=== PATIENT | female | born 1985 ===

== ENCOUNTER 2018-09-18 13:25 | Inpatient (IN) | payer OTHER ==
[2017-10-02 10:08] VITALS: BMI 24.3
--- NOTE | 2018-09-18 14:18 | OBHP ---
Datetime: 09/18/2018 14:09 IP Adm Impression: Term, intrauterine IP Admit Plan: Admit to unit; Initiate labor protocol Admit Comment, IP Provider: 33yo at 38+3wks CHAPARRO: 09/30/18 by LMP: 12/24/18 presents with uterine contractions since last night at 9pm q5-6 minutes. Reports good movements, denies leakage of fl uid. (+) vaginal spotting. PNC: Dr. Robertson POb: G1- current , no complications PGYN: LMP: 12/24/18 PMHx: denies PShx: denies ALL: NKDA Meds: PNV SHx: denies alcohol, tobacco, illicit drug use SVE: /-3 TOCO: q2-3 min EFM: 150s, mod variability (+) accels (-) decels A/P: 33yo at 38.3wks Admit to L_D for Labor d/w Dr. Robertson Pelvic Type - PN: Adequate General - PN: Normal FHR - Baseline A Provider: 150 Contraction Comments Provider: q2-3 Comments, ACOG Physical Exam: SVE: /-3 Gestation - Est Wks by US: 38.3 EGA AdmitDate IP: 38.2 IP Indication for Induction: Not Applicable IP Chief Complaint: Uterine contractions NICHD Variability Prov Fetus A: Moderate 6-25bpm NICHD Accel Fetus A IP Provider: 15X15 FHR Category Provider Fetus A: Category I NICHD Decel Fetus A IP Provider: None Dilatation, Provider: 2 Effacement, Provider: 80 Station, Provider: -2
[2018-09-18] MEDS ORDERED: Lactated Ringer's 1,000 ML IV ONE (14:21)
[2018-09-18] MEDS ORDERED: Lactated Ringer's 1,000 ML IV SCH (14:30)
--- NOTE | 2018-09-18 14:37 | OBADHP ---
Datetime: 09/18/2018 14:09 Admit Comment, IP Provider: 33yo at 38.2wks CHAPARRO: 09/30/18 by LMP: 12/24/18 c/w 12.5wk US presents with uterine contractions since last night at 9pm q5-6 minutes. Reports good movements, denies leakage of fluid. (+) vaginal spotting. PNC: Dr. Robertson POb: G1- current , no complications PGYN: LMP: 12/24/18 no h/o abnormal pap smears no STDs PMHx: denies PShx: denies ALL: NKDA Meds: PNV SHx: denies alcohol, tobacco, illicit drug use SVE: /-3 TOCO: q2-3 min EFM: 150s, mod variability (+) accels (-) decels A/P: 33yo at 38.2wks Admit to L_D for Labor continous EFM/TOCO IVF @ 125cc/hr Epidural PRN Dr. Robertson aware and in house Pelvic Type - PN: Adequate General - PN: Normal FHR - Baseline A Provider: 150 Membranes, Provider: Intact Contraction Comments Provider: q2-3 Comments, ACOG Physical Exam: SVE: /-3 Gestation - Est Wks by US: 38.3 Vital Signs Provider: Reviewed IP Chief Complaint: Uterine contractions NICHD Variability Prov Fetus A: Moderate 6-25bpm NICHD Accel Fetus A IP Provider: [id number] FHR Category Provider Fetus A: Category I NICHD Decel Fetus A IP Provider: None Dilatation, Provider: 2 Effacement, Provider: 80 Station, Provider: -2 EGA AdmitDate IP: 38.2 IP Adm Impression: Term, intrauterine IP Admit Plan: Admit to unit; Initiate labor protocol
[2018-09-18 15:04] LABS: BASO # 0.1 K/uL (0.0-0.2); BASO % 0.4 % (0.0-2.0); EOS % 0.3 % (0.0-4.0); HEMOGLOBIN 12.4 g/dL (11.0-16.0); LYMPH # 2.3 K/uL (1.0-4.3); LYMPH % 17.2 % (20.0-40.0); MEAN CELL VOLUME 87.4 fL (81.0-99.0); MEAN CORPUSCULAR HEMOGLOBIN 29.8 pg (27.0-31.0); MEAN CORPUSCULAR HGB CONC 34.1 g/dL (33.0-37.0); MONO % 7.1 % (0.0-10.0); NEUT # 10.2 K/uL (1.8-7.0); RBC 4.15 Mil/uL (3.80-5.20); RED CELL DISTRIBUTION WIDTH 13.5 % (11.5-14.5); WHITE BLOOD COUNT 13.6 K/uL (4.8-10.8)
[2018-09-18 15:10] LABS: SQUAMOUS EPITHIAL 3 /hpf (0-5); URINE BACTERIA OCC (<OCC); URINE BILIRUBIN NEGATIVE (NEGATIVE); URINE CLARITY Clear (Clear); URINE COLOR Straw (YELLOW); URINE GLUCOSE (UA) NORMAL (Normal); URINE PROTEIN NEGATIVE (NEGATIVE); URINE UROBILINOGEN NORMAL mg/dL (0.2-1.0)
[2018-09-18 15:21] LABS: URINE BLOOD 2+ (NEGATIVE); URINE LEUKOCYTE ESTERASE 1+ Leu/uL (Negative)
[2018-09-18 16:26] LABS: RAPID PLASMA REAGIN NONREACTIVE (NONREACTIVE)
--- NOTE | 2018-09-18 16:58 | OBPN ---
Datetime: 09/18/2018 16:53 IP Progress Impression: Normal progression of labor IP Informed Consent Obtain: Vaginal Delivery IP Procedures: Artificial ROM IP Progress Plan: Continue present management Membranes, Provider: Ruptured Amniotic Fluid Color, Provider: Clear Contraction Comments Provider: 4 min FHR - Baseline A Provider: 150 Gestation - Est Wks by US: 38.2 Presentation-Admit: Vertex IP Progress Note Comment: pt was seen and reexamined reprots pain from ctx q 5 min 6/10. denies lof, vb, +Fm VS see aove VE: 5/80/-2 AROM clearn EFM: Cta I MARIZOL: q 4 min A/P @ 38.2 wks GA in active labor s/p arom pitocin augmention as per protocol pain mangmetn cont curretn magnent Vital Signs Provider: Reviewed FHR Category Provider Fetus A: Category I NICHD Variability Prov Fetus A: Moderate 6-25bpm Dilatation, Provider: 5 Effacement, Provider: 80 Station, Provider: -2 NICHD Decel Fetus A IP Provider: None Datetime: 09/18/2018 14:09 NICHD Accel Fetus A IP Provider: [id number]
[2018-09-18] MEDS ORDERED: Oxytocin 30 UNIT 30 UNITS/500 ML BAG IV ONE (16:59)
[2018-09-18] MEDS ORDERED: Oxytocin 30 UNIT 30 UNITS/500 ML BAG IV SCH (17:00)
[2018-09-18] MEDS ORDERED: Fentanyl/Bupivacaine HCl 250 ML EPI ONE (19:36)
--- NOTE | 2018-09-19 02:59 | OBPN ---
Datetime: 09/19/2018 02:31 IP Progress Impression: Normal progression of labor IP Informed Consent Obtain: Vaginal Delivery IP Progress Plan: Continue present management; Anticipate Vaginal Delivery Membranes, Provider: Ruptured FHR - Baseline A Provider: 160 Gestation - Est Wks by US: 38.3 Presentation-Admit: Vertex IP Progress Note Comment: pt seen and examined for progression of labor s/p epidural VS see above VE: 10/100/0, VTX EFM: Cat I TOCO; q 2-3min A/P @38.3 wks GA fully dilated will start pushing anticipe cont current managment Vital Signs Provider: Reviewed NICHD Variability Prov Fetus A: Moderate 6-25bpm Dilatation, Provider: 10 Effacement, Provider: 100 Station, Provider: 0
[2018-09-19] MEDS ORDERED: Lidocaine 2% MPF (5 ml) Inj ONE (03:43)
[2018-09-19] MEDS ORDERED: Oxycodone/Acetaminophen 5/325 mg Tab PO PRN ×2 (04:34)
[2018-09-19] MEDS ORDERED: OXYTOCIN IV ONE (04:34)
--- NOTE | 2018-09-19 04:40 | OBDS ---
DELIVERY PERSONNEL Delivery Doctor: Giulia Robertson MD Scrub Nurse: Sima Carlos RN MATERNAL INFORMATION Delivery Anesthesia: Epidural Medications in Delivery: methergine 0.2mg IM Estimated Blood Loss (ml): 350 Placenta Cultured: No Maternal Complications: Maternal Fever Other Maternal Complications: fever of 101.0, peds made aware and present for delivery Provider Comments: pt was fully dilated and pushing. Verbcal consent for episitomy given by patient. Right mediolateral epistiomy perfomred, atrumat,c spontaneous delivery of head, tight nuchal cord x 1 looseened with compound presentation right hand. atrumatic, spontnaoud delivery of atnerior followe d by posterior shoulder followed by delivery of the body. both oral and nasal passages of the baby we re bulb suctioned. umbilical cord was clamped and cut. baby handed to mother on abodmen with rn margaret guallpa. Cord blood adn cord gases collected and sent x 2. sponatneous delivery of intact placent with membrnes, fundus fimr, lower uterine semgent boggy, bimnaul massages, methergine IM x 1 given. lower uterien segment firm. right sulcal laceration noted adn repaired with right mediolateral epistoimy w ith 2-0 and 3-[address] good hemostaiss, no complications live male agpars 9,9 weight of 6lbs 13 ounces ebl 350ml no complications LABOR SUMMARY EDC: 09/30/2018 00:00 No. Babies in Womb: 1 Attempted: No Labor Anesthesia: Epidural LABOR INFORMATION Onset of Labor: 09/18/2018 17:00 Complete Dilatation: 09/19/2018 01:56 Oxytocin: Induction Group B Beta Strep: Negative Steroids Given: None Reason Steroids Not Administered: Not Applicable MEMBRANES Membranes Rupture Method: Artificial Rupture of Membranes: 09/18/2018 16:50 Length of Rupture (hrs): 11.30 Amniotic Fluid Color: Clear Amniotic Fluid Amount: Scant Amniotic Fluid Odor: Normal STAGES OF LABOR Stage 1 hrs: 8 Stage 1 min: 56 Stage 2 hrs: 2 Stage 2 min: 12 Stage 3 hrs: 0 Stage 3 min: 5 Total Time in Labor hrs: 11 Total Time in Labor min: 13 VAGINAL DELIVERY Episiotomy: Right Mediolateral Laceration Extension: Second Degree Laceration Type: Sulcus Other Laceration: R sulcal laceratin Laceration Repair: Yes Initial Vag Sponge Count: 10 Final Vag Sponge Count: 10 Initial Vag Sharps Count: 3 Final Vag Sharps Count: 3 Sponge Count Correct: Yes Sharps Count Correct: Yes CSECTION DELIVERY Primary Indication: N/A Secondary Indication: N/A BABY A INFORMATION Delivery Date/Time: 09/19/2018 04:08 Method of Delivery: Vaginal Born in Route : No : N/A Forceps: N/A Vacuum Extraction: N/A Shoulder Dystocia : No SHOULDER DYSTOCIA BABY A Infant Delivery Date/Time: 09/19/2018 04:08 PRESENTATION/POSITION BABY A Presentation: Cephalic Cephalic Presentation: Vertex Vertex Position: Left Occipital Anterior Breech Presentation: N/A PLACENTA INFORMATION BABY A Placenta Delivery Time : 09/19/2018 04:13 Placenta Method of Delivery: Spontaneous Placenta Status: Delivered SCORES BABY A Heart Rate 1 min: >100 bpm Resp Effort 1 min: Good Cry Reflex Irritability 1 min: Cough or Sneeze or Pulls Away Muscle Tone 1 min: Active Motion Color 1 min: Body Belt, Extremities Blue SCORE 1 MIN: 9 Heart Rate 5 min: >100 bpm Resp Effort 5 min: Good Cry Reflex Irritability 5 min: Cough or Sneeze or Pulls Away Muscle Tone 5 min: Active Motion Color 5 min: Body Belt, Extremities Blue SCORE 5 MIN: 9 INFORMATION BABY A Gestational Age at Delivery: 38.3 Gestational Status: Term Outcome : Liveborn Infant Condition : Stable Infant Sex: Male IDENTIFICATION/MEDS BABY A ID Band Number: [id number] ID Band Location: Left Leg; Left Arm Sensor Applied: Yes Sensor Number: [id number] Sensor Location : Cord Clamp Vitamin K Given : Aquamephyton 1 mg IM; Left Thigh Erythromycin Given: Given Both Eyes WEIGHT/LENGTH BABY A Birthweight (gms): 3090 Infant Weight (lb): 6 Weight (oz): 13 Infant Length Inches: 19.50 Infant Length cms: 49.5 CORD INFORMATION BABY A No. Cord Vessels: 3 Nuchal Cord : Around Neck x1, Tight Cord Blood Taken: Yes Infant Suction: Mouth; Nose ASSESSMENT BABY A Infant Complications: None Physical Findings at Delivery: Within Normal Limits Respirations: Appears Normal Infant Care By: Peds Transferred To: Nursery
[2018-09-19] MEDS: Benzocaine/Menthol 20%-0.5% Topical Spray (60 ml) TOP PRN (09:39)
[2018-09-19] MEDS: Multiple Vitamins Tab PO SCH (09:39)
[2018-09-20] MEDS: Multiple Vitamins Tab PO SCH (09:04)
[2018-09-20] MEDS: Benzocaine/Menthol 20%-0.5% Topical Spray (60 ml) TOP PRN (09:04)
[2018-09-20 09:29] LABS: BASO # 0.1 K/uL (0.0-0.2); BASO % 0.3 % (0.0-2.0); EOS % 0.2 % (0.0-4.0); HEMOGLOBIN 10.8 g/dL (11.0-16.0); LYMPH # 3.4 K/uL (1.0-4.3); LYMPH % 16.3 % (20.0-40.0); MEAN CELL VOLUME 88.3 fL (81.0-99.0); MEAN CORPUSCULAR HEMOGLOBIN 29.4 pg (27.0-31.0); MEAN CORPUSCULAR HGB CONC 33.3 g/dL (33.0-37.0); MEAN PLATELET VOLUME 10.6 fL (7.2-11.7); MONO # 1.4 K/uL (0.0-0.8); MONO % 6.7 % (0.0-10.0); NEUT # 15.9 K/uL (1.8-7.0); NEUT % 76.5 % (50.0-75.0); RBC 3.68 Mil/uL (3.80-5.20); RED CELL DISTRIBUTION WIDTH 13.6 % (11.5-14.5); WHITE BLOOD COUNT 20.8 K/uL (4.8-10.8)
[2018-09-20 16:34] VITALS: O2SAT 99
[2018-09-20 19:52] LABS: BASO # 0.1 K/uL (0.0-0.2); BASO % 0.4 % (0.0-2.0); EOS # 0.1 K/uL (0.0-0.7); EOS % 0.7 % (0.0-4.0); HEMOGLOBIN 10.5 g/dL (11.0-16.0); LYMPH # 2.9 K/uL (1.0-4.3); LYMPH % 20.9 % (20.0-40.0); MEAN CELL VOLUME 87.5 fL (81.0-99.0); MEAN CORPUSCULAR HEMOGLOBIN 28.8 pg (27.0-31.0); MEAN CORPUSCULAR HGB CONC 32.9 g/dL (33.0-37.0); MONO # 1.3 K/uL (0.0-0.8); MONO % 9.3 % (0.0-10.0); NEUT # 9.5 K/uL (1.8-7.0); NEUT % 68.7 % (50.0-75.0); RBC 3.65 Mil/uL (3.80-5.20); RED CELL DISTRIBUTION WIDTH 13.7 % (11.5-14.5); WHITE BLOOD COUNT 13.8 K/uL (4.8-10.8)
[2018-09-21 00:04] VITALS: TEMP 97.2
--- NOTE | 2018-09-21 01:15 | OBPPN ---
Datetime: 09/21/2018 01:13 PP Pain Prov: Within normal limits PP Nausea Prov: Denies PP Flatus Prov: Yes PP BM Prov: Yes PP Breasts Prov: Normal PP Heart Prov: Normal PP Lungs Prov: Normal PP Abdomen/Uterus Prov: Normal PP Lochia Prov: Normal PP Vulva/Perineum Prov: Normal PP CVA Tenderness Prov: Normal PP Extremities Prov: Normal PP C/S Incision Prov: Not Applicable PP Progress Prov: Normal PP Comments Phys Exam Prov: fundus frim< below level of umbiucs VE: moderate lochia non fuls smelling epistio site c/d/i ext; no calf tnenders negitve mariola sing PP Impression Prov: Normal progression PP Plan Prov: Discharge IP PP Procedures: None Vital Signs Provider PP: Reviewed; Within Normal Limits
--- NOTE | 2018-09-21 01:17 | OBDCSUM ---
Datetime: 09/21/2018 01:16 Discharged to, Provider: Home Follow up at, Provider: Dr cordova Disch Instr Activity: Normal activity Disch Instr Diet: Regular Discharge Instructions, Provider: Routine instructions given Discharge Diagnosis, Provider: Term Delivered Discharge Time: 09/21/2018 10:00 Follow up in weeks, Provider: 6 weeks Disch Referrals: None Contraception discussed, Prov: Yes Disch Activity Restrictions: No sexual activity; Nothing in vagina - [place], tampons, douche Discharge Comment, Provider: dc in am Contraception after Delivery: Not Planning to Use Datetime: 09/20/2018 14:13 Discharged to, Provider: Home Follow up at, Provider: Dr Robertson Disch Instr Activity: Normal activity; May be up for meals; May Shower Disch Instr Diet: Regular Discharge Diet restrict Prov: none Discharge Time: 09/20/2018 17:00 Follow up in weeks, Provider: 6 weeks Disch Referrals: None Disch Activity Restrictions: No exercising; No lifting; No driving; No sexual activity; Nothing in v agina - [place], tampons, douche
[2018-09-21] MEDS: Multiple Vitamins Tab PO SCH (09:16)
[2018-09-21 09:21] VITALS: BP 86/56; PULSE 92; RESP 18
== END 2018-09-21 12:00 | disposition home or self-care (01) | DRG 806 ==
LOC: C.EROB 13:25 → C.4D 14:23 → C.4M 09-19 08:19
PROVIDERS: ADMIT Obstetrics & Gynecology; ATTEND Obstetrics & Gynecology
PROC: 10E0XZZ Delivery of Products of Conception, External Approach (ICD-10-PCS; principal; 2018-09-19)
PROC: 0KQM0ZZ Repair Perineum Muscle, Open Approach (ICD-10-PCS; 2018-09-19)
PROC: 0W8NXZZ Division of Female Perineum, External Approach (ICD-10-PCS; 2018-09-19)
PROC: 10907ZC Drainage of Amniotic Fluid, Therapeutic from Products of Conception, Via Natural or Artificial Opening (ICD-10-PCS; 2018-09-19)
DX: O32.6XX0 Maternal care for compound presentation, not applicable or unspecified (principal); O75.2 Pyrexia during labor, not elsewhere classified; Z37.0 Single live birth; O69.1XX0 Labor and delivery complicated by cord around neck, with compression, not applicable or unspecified; O70.1 Second degree perineal laceration during delivery; Z3A.38 38 weeks gestation of pregnancy